=== PATIENT | male | born 1990 | race African-American/Black ===

== ENCOUNTER 2023-06-16 11:14 | Emergency (ER) | payer OTHER ==
[~2023-06-16] VITALS: Ht 129.5 cm; Wt 54.4 kg
== END 2023-06-16 12:33 | disposition home or self-care (01) ==
LOC: ER 11:14
DX: S71.152A Open bite, left thigh, initial encounter (principal); W54.0XXA Bitten by dog, initial encounter; Y93.02 Activity, running; Y92.89 Other specified places as the place of occurrence of the external cause; Y99.9 Unspecified external cause status; Z88.0 Allergy status to penicillin; Z88.8 Allergy status to other drugs, medicaments and biological substances